=== PATIENT | male | born 1990 | race Caucasian/White ===

== ENCOUNTER 2021-11-05 13:21 | Inpatient (IN) | payer OTHER ==
[2021-11-05] MEDS ORDERED: LORazepam 1 MG TABLET PO PRN (14:30)
[2021-11-05 15:13] VITALS: BMI 20.2
[2021-11-05] MEDS: LORazepam 2 MG TABLET PO SCH ×2 (17:28→22:12)
[2021-11-05] MEDS ORDERED: MENTHOL/PHENOL 1 EACH UD MM PRN (17:54)
[2021-11-05] MEDS ORDERED: ACETAMINOPHEN 325 MG TABLET (FP) PO PRN ×2 (17:54)
[2021-11-05] MEDS ORDERED: METHOCARBAMOL 500 MG TABLET PO PRN (17:54)
[2021-11-05] MEDS ORDERED: ONDANSETRON *ODT* 4 MG TABLET SL PRN (17:54)
[2021-11-05] MEDS: hydrOXYzine PAMOATE 25 MG CAPSULE (FP) PO SCH ×2 (18:28→22:12)
[2021-11-05] MEDS: MELATONIN 5 MG TABLETS PO SCH (22:12)
[2021-11-05] MEDS: THIAMINE HCL 100 MG TABLET (FP) PO SCH (22:14)
[2021-11-06] MEDS: hydrOXYzine PAMOATE 25 MG CAPSULE (FP) PO SCH ×5 (05:17→22:15)
[2021-11-06] MEDS: LORazepam 2 MG TABLET PO SCH ×4 (05:17→22:14)
[2021-11-06] MEDS: methaDONE HCL 40 MG DISPERSABLE TABLET PO SCH (10:08)
[2021-11-06 13:12] LABS: HEMATOCRIT 27.8 % (35.4-49); HEMOGLOBIN 8.9 GM/dL (11.7-16.9); MCH 23.6 pg (25.7-33.7); MCHC 31.9 g/dl (32.0-35.9); MEAN CELL VOLUME 73.9 fl (80-96); MEAN PLT VOLUME 8.9 fl (7.5-11.1); PLATELET COUNT 165 10^3/uL (134-434); RBC 3.76 M/mm3 (4.00-5.60); RDW 18.8 % (11.9-15.9)
[2021-11-06 13:40] LABS: ALBUMIN 2.6 g/dl (3.4-5.0); BLOOD UREA NITROGEN 33.1 mg/dL (7-18); CALCIUM 10.9 mg/dL (8.5-10.1)
[2021-11-06 13:43] LABS: BILIRUBIN,TOTAL 0.4 mg/dL (0.2-1); CREATININE 2.8 mg/dL (0.55-1.3)
[2021-11-06 13:45] LABS: TOT PROT 7.7 g/dl (6.4-8.2)
[2021-11-06] MEDS: FERROUS SO4 325 MG TABLET (FP) PO SCH (18:04)
[2021-11-06] MEDS: MELATONIN 5 MG TABLETS PO SCH (22:14)
[2021-11-06] MEDS: THIAMINE HCL 100 MG TABLET (FP) PO SCH (22:14)
[2021-11-07] MEDS: BISMUTH SUBSALICYLATE 524 MG/30 ML PO PRN ×3 (02:58→22:18)
[2021-11-07] MEDS: methaDONE HCL 40 MG DISPERSABLE TABLET PO SCH (07:00)
[2021-11-07] MEDS: LORazepam 1 MG TABLET PO SCH ×4 (07:01→22:17)
[2021-11-07] MEDS: hydrOXYzine PAMOATE 25 MG CAPSULE (FP) PO SCH ×5 (07:02→22:20)
[2021-11-07] MEDS: FERROUS SO4 325 MG TABLET (FP) PO SCH ×3 (07:02→17:55)
[2021-11-07 14:53] LABS: BASO % 0.5 % (0-2.0); HEMATOCRIT 31.4 % (35.4-49); LYMPH % 28.6 % (8-40); MCH 23.5 pg (25.7-33.7); MCHC 31.8 g/dl (32.0-35.9); MEAN CELL VOLUME 73.9 fl (80-96); MEAN PLT VOLUME 9.4 fl (7.5-11.1); MONO % 13.5 % (3.8-10.2); NEUT % 50.4 % (42.8-82.8); PLATELET COUNT 191 10^3/uL (134-434); RBC 4.25 M/mm3 (4.00-5.60); RDW 19.4 % (11.9-15.9); RETICULOCYTES 1.52 % (0.5-1.5); WHITE BLOOD COUNT 3.5 K/mm3 (4.0-10.0)
[2021-11-07 15:01] LABS: BLOOD UREA NITROGEN 40.5 mg/dL (7-18); CALCIUM 11.4 mg/dL (8.5-10.1)
[2021-11-07 15:02] LABS: BILIRUBIN,TOTAL 0.2 mg/dL (0.2-1); TOT PROT 8.7 g/dl (6.4-8.2)
[2021-11-07 15:03] LABS: CREATININE 2.7 mg/dL (0.55-1.3)
[2021-11-07 15:16] LABS: ANISOCYTOSIS 1+; MACROCYTOSIS 1+; PLATELET ESTIMATE NORMAL
[2021-11-07] MEDS: THIAMINE HCL 100 MG TABLET (FP) PO SCH (22:16)
[2021-11-07] MEDS: MELATONIN 5 MG TABLETS PO SCH (22:17)
[2021-11-08] MEDS ORDERED: LORazepam 0.5 MG TABLET PO PRN
[2021-11-08] MEDS: hydrOXYzine PAMOATE 25 MG CAPSULE (FP) PO SCH ×5 (05:17→22:22)
[2021-11-08] MEDS: methaDONE HCL 40 MG DISPERSABLE TABLET PO SCH (05:17)
[2021-11-08] MEDS: LORazepam 0.5 MG TABLET PO SCH ×4 (05:20→22:22)
[2021-11-08] MEDS: FERROUS SO4 325 MG TABLET (FP) PO SCH ×3 (08:12→17:40)
[2021-11-08] MEDS: BISMUTH SUBSALICYLATE 524 MG/30 ML PO PRN (10:15)
[2021-11-08] MEDS: MELATONIN 5 MG TABLETS PO SCH (22:21)
[2021-11-08] MEDS: THIAMINE HCL 100 MG TABLET (FP) PO SCH (22:22)
[2021-11-09] MEDS ORDERED: LORazepam 0.5 MG TABLET PO ONE (05:00)
[2021-11-09] MEDS: methaDONE HCL 40 MG DISPERSABLE TABLET PO SCH (05:20)
[2021-11-09] MEDS: hydrOXYzine PAMOATE 25 MG CAPSULE (FP) PO SCH ×2 (05:21→10:52)
[2021-11-09] MEDS: FERROUS SO4 325 MG TABLET (FP) PO SCH ×2 (07:28→12:35)
[2021-11-09 10:01] LABS: BLOOD UREA NITROGEN 48.9 mg/dL (7-18); CALCIUM 12.4 mg/dL (8.5-10.1)
[2021-11-09 10:02] LABS: BILIRUBIN,TOTAL 0.2 mg/dL (0.2-1); TOT PROT 8.8 g/dl (6.4-8.2)
[2021-11-09 10:06] LABS: INR 0.97 (0.83-1.09); PROTHROMBIN TIME (PATIENT) 11.4 SEC (9.7-13.0)
[2021-11-09 13:19] VITALS: BP 123/79; PULSE 80; TEMP 97.8
== END 2021-11-09 13:35 | disposition other institution (70) | DRG 897 ==
LOC: YASAS 13:21 → Y3N 15:25 → Y5N 11-09 09:49 → Y3N 11-09 10:02
PROVIDERS: ADMIT Allergy & Immunology; ATTEND Allergy & Immunology
PROC: HZ2ZZZZ Detoxification Services for Substance Abuse Treatment (ICD-10-PCS; principal; 2021-11-05)
DX: F11.23 Opioid dependence with withdrawal (principal); F14.20 Cocaine dependence, uncomplicated; K50.90 Crohn's disease, unspecified, without complications; F13.230 Sedative, hypnotic or anxiolytic dependence with withdrawal, uncomplicated; D64.9 Anemia, unspecified; D72.819 Decreased white blood cell count, unspecified; N28.9 Disorder of kidney and ureter, unspecified; Z86.19 Personal history of other infectious and parasitic diseases; Z91.013 Allergy to seafood; Z56.0 Unemployment, unspecified
CPT/HCPCS: 36415; 80053; 82607; 82746; 83540; 83550; 85025; 85027; 85045; 85610; 86780; 93005; 93010; C9803; Q0162; U0003; U0005

== ENCOUNTER 2021-11-09 13:53 | Inpatient (IN) | payer OTHER ==
[2021-11-09] MEDS ORDERED: guaiFENesin 200 MG/10 ML 10 ML UNIT-DOSE CUPS PO PRN (15:12)
[2021-11-09] MEDS ORDERED: P-EPHED 60MG/TRIPROLIDI 2.5MG TABLET PO PRN (15:12)
[2021-11-09] MEDS ORDERED: MENTHOL/PHENOL 1 EACH UD MM PRN (15:12)
[2021-11-09] MEDS ORDERED: MAG HYDROX/AL HYDROX/SIMETH 30 ML UNIT-DOSE CUP PO PRN (15:12)
[2021-11-09] MEDS ORDERED: IBUPROFEN 400 MG TABLET (FP) PO PRN (15:12)
[2021-11-09] MEDS ORDERED: MAGNESIUM HYDROX 2400MG/30ML ORAL SUSPENSION 30 ML CUP PO PRN (15:12)
[2021-11-09] MEDS ORDERED: NICOTINE 10 MG CARTRIDGE (INHALER) IH PRN (15:12)
[2021-11-09] MEDS ORDERED: MAGNESIUM CITRATE 300 ML BOTTLE PO PRN (15:12)
[2021-11-09] MEDS ORDERED: ACETAMINOPHEN 325 MG TABLET (FP) PO PRN (15:12)
[2021-11-09] MEDS: FERROUS SO4 325 MG TABLET (FP) PO SCH (17:53)
[2021-11-09] MEDS: MELATONIN 5 MG TABLETS PO SCH (22:28)
[2021-11-09] MEDS: THIAMINE HCL 100 MG TABLET (FP) PO SCH (22:28)
[2021-11-10] MEDS: PRENATAL VITAMINS W/ FOLIC ACID TABLET (FP) PO SCH (09:43)
[2021-11-10] MEDS: NICOTINE 7 MG/24 HOURS TOPICAL PATCH TD SCH (09:43)
[2021-11-10] MEDS: FERROUS SO4 325 MG TABLET (FP) PO SCH ×3 (09:43→18:13)
[2021-11-10] MEDS ORDERED: methaDONE HCL 40 MG DISPERSABLE TABLET PO SCH (10:00)
[2021-11-10 10:49] LABS: BLOOD UREA NITROGEN 55.9 mg/dL (7-18); CALCIUM 11.9 mg/dL (8.5-10.1)
[2021-11-10 10:53] LABS: CREATININE 3.1 mg/dL (0.55-1.3)
[2021-11-10] MEDS: MELATONIN 5 MG TABLETS PO SCH (21:24)
[2021-11-10] MEDS: THIAMINE HCL 100 MG TABLET (FP) PO SCH (21:25)
[2021-11-10] MEDS: hydrOXYzine PAMOATE 25 MG CAPSULE (FP) PO PRN (21:25)
[2021-11-11] MEDS: methaDONE HCL 40 MG DISPERSABLE TABLET PO SCH (06:07)
[2021-11-11] MEDS: FERROUS SO4 325 MG TABLET (FP) PO SCH ×3 (07:40→17:35)
[2021-11-11] MEDS: PRENATAL VITAMINS W/ FOLIC ACID TABLET (FP) PO SCH (09:50)
[2021-11-11] MEDS: LOPERAMIDE HCL 2 MG CAPSULE PO PRN ×2 (09:50→21:31)
[2021-11-11] MEDS: NICOTINE 7 MG/24 HOURS TOPICAL PATCH TD SCH (09:51)
[2021-11-11] MEDS: hydrOXYzine PAMOATE 25 MG CAPSULE (FP) PO PRN ×2 (09:52→21:30)
[2021-11-11] MEDS: MELATONIN 5 MG TABLETS PO SCH (21:29)
[2021-11-11] MEDS: THIAMINE HCL 100 MG TABLET (FP) PO SCH (21:30)
[2021-11-12] MEDS: methaDONE HCL 40 MG DISPERSABLE TABLET PO SCH (06:33)
[2021-11-12] MEDS: hydrOXYzine PAMOATE 25 MG CAPSULE (FP) PO PRN ×2 (06:36→20:23)
[2021-11-12] MEDS: LOPERAMIDE HCL 2 MG CAPSULE PO PRN ×2 (06:36→20:27)
[2021-11-12] MEDS: FERROUS SO4 325 MG TABLET (FP) PO SCH ×3 (07:15→20:22)
[2021-11-12] MEDS: PRENATAL VITAMINS W/ FOLIC ACID TABLET (FP) PO SCH (09:56)
[2021-11-12] MEDS: MELATONIN 5 MG TABLETS PO SCH (21:26)
[2021-11-12] MEDS: THIAMINE HCL 100 MG TABLET (FP) PO SCH (21:27)
[2021-11-13] MEDS: methaDONE HCL 40 MG DISPERSABLE TABLET PO SCH (06:06)
[2021-11-13] MEDS: hydrOXYzine PAMOATE 25 MG CAPSULE (FP) PO PRN ×2 (06:08→21:25)
[2021-11-13] MEDS: FERROUS SO4 325 MG TABLET (FP) PO SCH ×3 (07:14→17:23)
[2021-11-13] MEDS: PRENATAL VITAMINS W/ FOLIC ACID TABLET (FP) PO SCH (09:57)
[2021-11-13] MEDS ORDERED: BISMUTH SUBSALICYLATE 262 MG/15 ML BTL PO PRN (13:19)
[2021-11-13] MEDS: MELATONIN 5 MG TABLETS PO SCH (21:25)
[2021-11-13] MEDS: THIAMINE HCL 100 MG TABLET (FP) PO SCH (21:31)
[2021-11-14] MEDS: hydrOXYzine PAMOATE 25 MG CAPSULE (FP) PO PRN ×2 (06:02→21:14)
[2021-11-14] MEDS: methaDONE HCL 40 MG DISPERSABLE TABLET PO SCH (06:03)
[2021-11-14] MEDS: FERROUS SO4 325 MG TABLET (FP) PO SCH ×3 (07:17→17:41)
[2021-11-14] MEDS: PRENATAL VITAMINS W/ FOLIC ACID TABLET (FP) PO SCH (10:04)
[2021-11-14] MEDS: MELATONIN 5 MG TABLETS PO SCH (21:13)
[2021-11-14] MEDS: THIAMINE HCL 100 MG TABLET (FP) PO SCH (22:28)
[2021-11-15] MEDS: methaDONE HCL 40 MG DISPERSABLE TABLET PO SCH (06:23)
[2021-11-15] MEDS: hydrOXYzine PAMOATE 25 MG CAPSULE (FP) PO PRN ×2 (06:23→21:18)
[2021-11-15] MEDS: FERROUS SO4 325 MG TABLET (FP) PO SCH ×3 (07:38→17:26)
[2021-11-15] MEDS: PRENATAL VITAMINS W/ FOLIC ACID TABLET (FP) PO SCH (10:59)
[2021-11-15] MEDS: MELATONIN 5 MG TABLETS PO SCH (21:18)
[2021-11-15] MEDS: THIAMINE HCL 100 MG TABLET (FP) PO SCH (21:19)
[2021-11-16] MEDS: methaDONE HCL 40 MG DISPERSABLE TABLET PO SCH (06:20)
[2021-11-16] MEDS: hydrOXYzine PAMOATE 25 MG CAPSULE (FP) PO PRN ×2 (06:21→21:16)
[2021-11-16] MEDS: FERROUS SO4 325 MG TABLET (FP) PO SCH ×3 (07:00→18:10)
[2021-11-16] MEDS: PRENATAL VITAMINS W/ FOLIC ACID TABLET (FP) PO SCH (10:18)
[2021-11-16] MEDS: MELATONIN 5 MG TABLETS PO SCH (21:16)
[2021-11-16] MEDS: THIAMINE HCL 100 MG TABLET (FP) PO SCH (21:16)
[2021-11-17] MEDS: methaDONE HCL 40 MG DISPERSABLE TABLET PO SCH (06:11)
[2021-11-17] MEDS: hydrOXYzine PAMOATE 25 MG CAPSULE (FP) PO PRN (06:13)
[2021-11-17 07:27] VITALS: BP 131/80; PULSE 67; TEMP 97.9
[2021-11-17] MEDS: FERROUS SO4 325 MG TABLET (FP) PO SCH (07:30)
== END 2021-11-17 09:40 | disposition home or self-care (01) | DRG 895 ==
LOC: YASAS 13:53 → Y5N 13:56
PROVIDERS: ADMIT Allergy & Immunology; ATTEND Allergy & Immunology
PROC: HZ42ZZZ Group Counseling for Substance Abuse Treatment, Cognitive-Behavioral (ICD-10-PCS; principal; 2021-11-09)
DX: F11.20 Opioid dependence, uncomplicated (principal); F14.20 Cocaine dependence, uncomplicated; K50.90 Crohn's disease, unspecified, without complications; F13.10 Sedative, hypnotic or anxiolytic abuse, uncomplicated; D64.9 Anemia, unspecified; D72.819 Decreased white blood cell count, unspecified; Z86.19 Personal history of other infectious and parasitic diseases; Z56.0 Unemployment, unspecified
CPT/HCPCS: 36415; 80048